=== PATIENT | female | born 1945 | race Caucasian/White ===

== ENCOUNTER 2018-05-16 20:11 | Inpatient (IN) | payer BC, MEDICARE ==
[2018-05-16] MEDS ORDERED: ONDANSETRON HCL/PF 2 MG/ML VIAL IV ONE ×2 (21:20→22:59)
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
[2018-05-16 21:31] LABS: Hemoglobin 12.5 gm/dL (12.5-16.0); Mean Cell Volume 99.7 fl (78-100); Mean Corpuscular Hemoglobin 33.7 pg (27-31); Mean Corpuscular Hgb Conc 33.8 g/dl (32-36); Mean Platelet Volume 9.7 fl (8-12.5); Platelet Count 292 K/mm3 (150-450); Red Blood Count 3.71 M/mm3 (4.2-5.4); Red Cell Distribution Width 13.9 % (11.5-14.0); White Blood Count 39.9 K/mm3 (4.0-10.5)
[2018-05-16 21:36] LABS: Total Cells Counted 100
[2018-05-16 21:50] LABS: Albumin * 3.4 gm/dl (3.4-5.0); Anion Gap 14.6 mmol/L (6.8-13.8); Bilirubin, Total 0.6 mg/dL (0.0-1.1); Ca. Corrected For Albumin 9.3 mg/dL (8.4-10.2); Calcium * 9.1 mg/dL (7.9-10.9); Carbon Dioxide 25.1 mmol/L (24-32.6); Potassium 3.7 mmol/L (3.4-4.6); Total Protein 7.6 gm/dL (6.2-8.2)
[2018-05-16 21:52] LABS: Band 2 % (0-2.0); Lymphocyte 7 % (20-51); Monocyte 9 % (0-9); Neutrophil 82 % (42-75); Neutrophil # 32.7 K/mm3 (1.3-6.0)
[2018-05-16 21:53] LABS: Dohle Bodies 2+; Platelet Estimate Normal (NORMAL); Poikilocytosis Trace; Toxic Granulation Trace
[2018-05-16] MEDS ORDERED: DIATRIZOATE MEGLUMINE, SODIUM 30 ML BTL PO ONE (22:48)
[2018-05-17] MEDS ORDERED: AZITHROMYCIN 250 MG TABLET PO ONE (01:45)
[2018-05-17] MEDS: ACETAMINOPHEN 500 MG TABLET PO PRN ×2 (07:13→15:53)
[2018-05-17] MEDS ORDERED: ACETAMINOPHEN 500 MG TABLET PO PRN (13:37)
[2018-05-17] MEDS ORDERED: ONDANSETRON HCL 4 MG TABLET PO PRN (13:41)
[2018-05-17] MEDS ORDERED: ENOXAPARIN SODIUM 40 MG/0.4 ML SYRG SC SCH (13:45)
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
[2018-05-17] MEDS: GABAPENTIN 600 MG TABLET PO SCH ×2 (14:48→20:47)
[2018-05-17] MEDS: CYCLOBENZAPRINE HCL 10 MG TABLET PO SCH ×2 (14:49→20:02)
[2018-05-17] MEDS ORDERED: SODIUM CHLORIDE 500 DROP BTL NS PRN (15:12)
[2018-05-17] MEDS ORDERED: GABAPENTIN 600 MG TABLET PO SCH (17:00)
[2018-05-17] MEDS: ROSUVASTATIN CALCIUM 20 MG TABLET PO SCH (20:02)
[2018-05-17] MEDS: ALPRAZolam 0.5 MG TABLET PO SCH (20:02)
[2018-05-18] MEDS: CYCLOBENZAPRINE HCL 10 MG TABLET PO SCH ×4 (01:18→20:00)
[2018-05-18] MEDS: GABAPENTIN 600 MG TABLET PO SCH ×3 (05:13→21:09)
[2018-05-18] MEDS: ACETAMINOPHEN 500 MG TABLET PO PRN ×2 (06:52→19:12)
[2018-05-18] MEDS: LEVOTHYROXINE SODIUM 50 MCG TABLET PO SCH (06:54)
[2018-05-18] MEDS: NORMAL SALINE 1,000 ML IV ONE ×2 (07:40→15:15)
[2018-05-18] MEDS: AZITHROMYCIN 500 MG in DEXTROSE 5 % IN WATER 250 ML IV SCH ×2 (07:45)
[2018-05-18] MEDS: CHOLECALCIFEROL 1,000 UNIT CAPSULE PO SCH (08:07)
[2018-05-18] MEDS: CYANOCOBALAMIN 1,000 MCG TABLET PO SCH (08:07)
[2018-05-18] MEDS: CLOPIDOGREL BISULFATE 75 MG TABLET PO SCH (08:07)
[2018-05-18] MEDS: HYDROCHLOROTHIAZIDE 12.5 MG CAPSULE PO SCH (08:07)
[2018-05-18] MEDS: LISINOPRIL 20 MG TABLET PO SCH (08:08)
[2018-05-18] MEDS: ALLOPURINOL 100 MG TABLET PO SCH (08:08)
[2018-05-18] MEDS ORDERED: NON-FORMULARY 1 DOSE DOSE (Lisinopril/Hydrochlorothiazide [Lisinopril-Hctz 20-12.5 Mg Tab] PO SCH (09:00)
[2018-05-18 11:04] LABS: Hematocrit 35.7 % (37.0-47.0); Hemoglobin 11.8 gm/dL (12.5-16.0); Mean Cell Volume 102.6 fl (78-100); Mean Corpuscular Hemoglobin 33.9 pg (27-31); Mean Corpuscular Hgb Conc 33.1 g/dl (32-36); Mean Platelet Volume 10.1 fl (8-12.5); Platelet Count 283 K/mm3 (150-450); Red Blood Count 3.48 M/mm3 (4.2-5.4); Red Cell Distribution Width 13.9 % (11.5-14.0); White Blood Count 23.9 K/mm3 (4.0-10.5)
[2018-05-18 11:14] LABS: Total Cells Counted 100
[2018-05-18 11:21] LABS: Albumin * 2.7 gm/dl (3.4-5.0); BUN/Creatinine Ratio 24.2 (9.0-21.6); Bilirubin, Total 0.6 mg/dL (0.0-1.1); Ca. Corrected For Albumin 9.5 mg/dL (8.4-10.2); Calcium * 8.8 mg/dL (7.9-10.9); Carbon Dioxide 30.7 mmol/L (24-32.6); Potassium 3.7 mmol/L (3.4-4.6); Total Protein 6.9 gm/dL (6.2-8.2)
[2018-05-18 11:31] LABS: Atypical (Reactive) Lymph 3 % (0-2); Band 2 % (0-2.0); Lymphocyte 2 % (20-51); Monocyte 3 % (0-9); Neutrophil 90 % (42-75); Neutrophil # 21.5 K/mm3 (1.3-6.0)
[2018-05-18 11:33] LABS: Platelet Estimate Normal (NORMAL); RBC Morphology Normal (NORMAL); Toxic Granulation 1+
[2018-05-18] MEDS ORDERED: LIDOCAINE HCL 50 ML VIAL IM ONE (11:40)
[2018-05-18] MEDS ORDERED: NORMAL SALINE 1,000 ML IV ONE ×2 (11:42→16:02)
--- NOTE | 2018-05-18 12:15 | PN ---
Subjective - Date and Time Seen Date: 05/18/18 Time: 11:58 Subjective Narrative: 72-year-old female admitted for bilateral bronchopneumonia was evaluated at bedside and was found to be afebrile and in no acute distress. Patient shows clinical improvement however today's labs demonstrate worsening renal function and moderate hypo-natremia, therefore high IV hydration was ordered and repeat labs was were ordered for tomorrow morning. Patient was also found to have moderate hyponatremia therefore nutrition consult was requested. Sputum culture shows growth of a gram-positive organism so we will continue IV antibiotics. We will reevaluate her throughout the day. Objective - Review of Systems Generalized/Overall Review: Reports: Weakness EENTM: Reports: No Symptoms Reported Respiratory: Reports: Cough Cardiac: Reports: No Symptoms Reported Abdominal: Reports: Nausea Genitourinary Symptoms: Reports: No Symptoms Reported Musculoskeletal Complaints: Reports: No Symptoms Reported Neurological: Reports: No Symptoms Reported Skin: Reports: No Symptoms Reported Endocrine: Reports: No Symptoms Reported - Vitals Vitals: Last Vital Signs Temp 36.4 C 05/18/18 10:19 Pulse 85 05/18/18 10:19 Resp 16 05/18/18 10:19 BP 114/53 05/18/18 10:19 Pulse Ox 92 L 05/18/18 10:19 - Abnormal Lab Findings Abnormal Lab Findings: Abnormal Lab Results 05/18/18 05/18/18 Range/Units 10:55 10:55 WBC 23.9 H D (4.0-10.5) K/mm3 RBC 3.48 L (4.2-5.4) M/mm3 Hgb 11.8 L (12.5-16.0) gm/dL Hct 35.7 L (37.0-47.0) % MCV 102.6 H (78-100) fl MCH 33.9 H (27-31) pg Neutrophils % (Manual) 90 H (42-75) % Lymphocytes % (Manual) 2 L (20-51) % Neutrophils # (Manual) 21.5 H (1.3-6.0) K/mm3 Lymphocytes # (Manual) 0.5 L (1.5-3.5) k/mm3 Atypic/Reactive Lymphs 3 H (0-2) % Sodium 128 L (132-142) mmol/L Chloride 96 L (97-106) mmol/L Anion Gap 5.0 L (6.8-13.8) mmol/L BUN 55 H D (3-23) mg/dL Creatinine 2.27 H D (0.4-1.4) mg/dL Est GFR (Non-Af Amer) 22 L D (60-130) mL/min BUN/Creatinine Ratio 24.2 H (9.0-21.6) Random Glucose 370 H D (70-110) mg/dL ALT 16 L (19-67) U/L Albumin 2.7 L (3.4-5.0) gm/dl - Exam Constitutional: Present: Alert, Oriented x3, Cooperative, No distress, Elderly ENT Exam: Present: normal ENT inspection, hearing grossly normal, pharynx normal, TMs normal Neck: Present: non-tender Breasts: Present: Exam deferred Respiratory: Present: crackles - Bibasilar Cardiovascular/Chest: Present: normal peripheral pulses, regular rate, rhythm, no chest tenderness, no edema, no gallop, no JVD, no murmur Abdomen: Present: Normal bowel sounds, soft, nontender, nondistended, no rebound tenderness, no hepatospenomegaly, no masses, obese /Rectal: Present: Exam deferred Extremity: Present: normal range of motion, non-tender, normal inspection, no pedal edema, no calf tenderness Skin Exam: Present: warm/dry, no cyanosis, pallor Lymphatic: Present: no adenopathy Neurologic: 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 She is mildly hypotensive and this morning's labs demonstrate AK I with elevated BUN and creatinine, therefore patient will be admitted to the inpatient [facility] where she will be treated with continued IV antibiotics for her pneumonia and aggressive IV hydration. IV bolus of normal saline has been ordered to address her acute kidney injury and moderate dehydration. Morning labs have been ordered to reevaluate electrolytes and kidney function. - Problems/Diagnosis (1) Pneumonia Problem: Acute Qualifiers: Pneumonia type: due to unspecified organism Laterality: bilateral Lung location: lower lobe of lung Qualified Code(s): J18.1 - Lobar pneumonia, unspecified organism (2) Dehydration, moderate Problem: Acute (3) Gastroenteritis Problem: Acute (4) Generalized weakness Problem: Acute
[2018-05-18] MEDS ORDERED: INSULIN REGULAR, HUMAN 100 UNITS/ML VIAL SC ONE (17:14)
[2018-05-18] MEDS: INSULIN LISPRO 100 UNITS/ML VIAL SC SCH ×2 (17:25→21:47)
[2018-05-18] MEDS ORDERED: ACETAMINOPHEN 325 MG TABLET ONE (19:03)
[2018-05-18] MEDS ORDERED: INSULIN REGULAR, HUMAN 100 UNITS/ML VIAL SC SCH (19:15)
[2018-05-18] MEDS ORDERED: NORMAL SALINE 500 ML IV ONE ×2 (19:17→21:04)
[2018-05-18] MEDS: ROSUVASTATIN CALCIUM 20 MG TABLET PO SCH (20:00)
[2018-05-18] MEDS: ALPRAZolam 0.5 MG TABLET PO SCH (20:05)
[2018-05-19] MEDS: CYCLOBENZAPRINE HCL 10 MG TABLET PO SCH ×2 (02:34→08:21)
[2018-05-19] MEDS: GABAPENTIN 600 MG TABLET PO SCH (05:18)
[2018-05-19 05:35] LABS: Hemoglobin 11.1 gm/dL (12.5-16.0); Mean Cell Volume 101.8 fl (78-100); Mean Corpuscular Hemoglobin 33.2 pg (27-31); Mean Corpuscular Hgb Conc 32.6 g/dl (32-36); Mean Platelet Volume 10.4 fl (8-12.5); Platelet Count 280 K/mm3 (150-450); Red Blood Count 3.34 M/mm3 (4.2-5.4); Red Cell Distribution Width 13.5 % (11.5-14.0); White Blood Count 18.8 K/mm3 (4.0-10.5)
[2018-05-19 05:39] LABS: Total Cells Counted 100
[2018-05-19 06:01] LABS: Albumin * 2.7 gm/dl (3.4-5.0); Anion Gap 11.6 mmol/L (6.8-13.8); BUN/Creatinine Ratio 25.1 (9.0-21.6); Bilirubin, Total 0.6 mg/dL (0.0-1.1); Ca. Corrected For Albumin 9.2 mg/dL (8.4-10.2); Calcium * 8.5 mg/dL (7.9-10.9); Carbon Dioxide 27.4 mmol/L (24-32.6); Total Protein 6.6 gm/dL (6.2-8.2)
[2018-05-19 06:13] LABS: Atypical (Reactive) Lymph 4 % (0-2); Eosinophil 1 % (0-3); Lymphocyte 5 % (20-51); Monocyte 7 % (0-9); Neutrophil 83 % (42-75); Neutrophil # 15.6 K/mm3 (1.3-6.0)
[2018-05-19 06:19] LABS: Platelet Estimate Normal (NORMAL)
[2018-05-19 06:20] LABS: Macrocytosis 1+; Schistocytes 1+; Target Cells 1+
[2018-05-19] MEDS: AZITHROMYCIN 500 MG in DEXTROSE 5 % IN WATER 250 ML IV SCH ×2 (06:30)
[2018-05-19] MEDS: LEVOTHYROXINE SODIUM 50 MCG TABLET PO SCH (06:30)
[2018-05-19] MEDS: INSULIN LISPRO 100 UNITS/ML VIAL SC SCH ×2 (07:46→11:45)
[2018-05-19] MEDS: HYDROCHLOROTHIAZIDE 12.5 MG CAPSULE PO SCH (08:32)
[2018-05-19] MEDS: LISINOPRIL 20 MG TABLET PO SCH (08:33)
[2018-05-19] MEDS: CHOLECALCIFEROL 1,000 UNIT CAPSULE PO SCH (08:37)
[2018-05-19] MEDS: CYANOCOBALAMIN 1,000 MCG TABLET PO SCH (08:37)
[2018-05-19] MEDS: ALLOPURINOL 100 MG TABLET PO SCH (08:38)
[2018-05-19] MEDS: CLOPIDOGREL BISULFATE 75 MG TABLET PO SCH (08:38)
[2018-05-19] MEDS ORDERED: INSULIN GLARGINE,HUM.REC.ANLOG 100 UNITS/ML VIAL SC SCH (09:00)
[2018-05-19] MEDS ORDERED: NORMAL SALINE 1,000 ML IV ONE (10:24)
--- NOTE | 2018-05-19 10:24 | PN ---
Subjective - Date and Time Seen Date: 05/19/18 Time: 10:14 Subjective Narrative: I feel so much better. Objective Objective Narrative: 72-year-old female admitted for bilateral bronchopneumonia was evaluated at bedside and was found to be afebrile and in no acute distress. Patient patient shows marked improvement, she is maintaining stable vitals her cough has resolved and there has been no recurrence of fever. This morning labs demonstrate a decline in WBCs and an improvement in GFR after aggressive hydration. Patient had to be treated with multiple doses of IV insulin due to uncontrolled hyperglycemia, aggressive action had to be taken for optimal glucose control to favor resolution of bacterial infection. patient appears to have more color and strength and she verbalizes that she feels better than when she came. She wanted to know when we should be discharged from the hospital. We will give her 1 more bolus of IV fluid and reevaluate for possible discharge throughout the day. - Review of Systems Generalized/Overall Review: Reports: Weakness EENTM: Reports: No Symptoms Reported Respiratory: Reports: No Symptoms Reported Cardiac: Reports: No Symptoms Reported Abdominal: Reports: No Symptoms Reported Genitourinary Symptoms: Reports: No Symptoms Reported Musculoskeletal Complaints: Reports: No Symptoms Reported Neurological: Reports: No Symptoms Reported Skin: Reports: No Symptoms Reported Endocrine: Reports: No Symptoms Reported - Vitals Vitals: Last Vital Signs Temp 37.2 C 05/19/18 05:00 Pulse 92 05/19/18 08:33 Resp 20 05/19/18 05:00 BP 141/60 05/19/18 08:33 Pulse Ox 95 05/19/18 05:00 - Abnormal Lab Findings Abnormal Lab Findings: Abnormal Lab Results 05/18/18 05/18/18 05/19/18 Range/Units 10:55 10:55 05:31 WBC 23.9 H D 18.8 H D (4.0-10.5) K/mm3 RBC 3.48 L 3.34 L (4.2-5.4) M/mm3 Hgb 11.8 L 11.1 L (12.5-16.0) gm/dL Hct 35.7 L 34.0 L (37.0-47.0) % MCV 102.6 H 101.8 H (78-100) fl MCH 33.9 H 33.2 H (27-31) pg Neutrophils % (Manual) 90 H 83 H (42-75) % Lymphocytes % (Manual) 2 L 5 L (20-51) % Neutrophils # (Manual) 21.5 H 15.6 H (1.3-6.0) K/mm3 Lymphocytes # (Manual) 0.5 L 0.9 L (1.5-3.5) k/mm3 Monocytes # (Manual) 1.3 H (0.0-1.0) k/mm3 Atypic/Reactive Lymphs 3 H 4 H (0-2) % Sodium 128 L (132-142) mmol/L Chloride 96 L (97-106) mmol/L Anion Gap 5.0 L (6.8-13.8) mmol/L BUN 55 H D (3-23) mg/dL Creatinine 2.27 H D (0.4-1.4) mg/dL Est GFR (Non-Af Amer) 22 L D (60-130) mL/min BUN/Creatinine Ratio 24.2 H (9.0-21.6) Random Glucose 370 H D (70-110) mg/dL ALT 16 L (19-67) U/L Albumin 2.7 L (3.4-5.0) gm/dl 05/19/18 Range/Units 05:31 WBC (4.0-10.5) K/mm3 RBC (4.2-5.4) M/mm3 Hgb (12.5-16.0) gm/dL Hct (37.0-47.0) % MCV (78-100) fl MCH (27-31) pg Neutrophils % (Manual) (42-75) % Lymphocytes % (Manual) (20-51) % Neutrophils # (Manual) (1.3-6.0) K/mm3 Lymphocytes # (Manual) (1.5-3.5) k/mm3 Monocytes # (Manual) (0.0-1.0) k/mm3 Atypic/Reactive Lymphs (0-2) % Sodium (132-142) mmol/L Chloride (97-106) mmol/L Anion Gap (6.8-13.8) mmol/L BUN 50 H (3-23) mg/dL Creatinine 1.99 H (0.4-1.4) mg/dL Est GFR (Non-Af Amer) 26 L (60-130) mL/min BUN/Creatinine Ratio 25.1 H (9.0-21.6) Random Glucose 293 H (70-110) mg/dL ALT (19-67) U/L Albumin 2.7 L (3.4-5.0) gm/dl - Exam Constitutional: Present: Alert, Oriented x3, Cooperative, Well developed, Well nourished, No distress, Elderly ENT Exam: Present: normal ENT inspection, hearing grossly normal, pharynx normal, TMs normal Neck: Present: non-tender, full range of motion, supple, normal inspection, trachea midline, limited range of motion Breasts: Present: Exam deferred Respiratory: Present: chest non-tender, lungs clear, normal breath sounds, no respiratory distress Cardiovascular/Chest: Present: normal peripheral pulses, regular rate, rhythm, no chest tenderness, no edema, no gallop, no JVD, no murmur Abdomen: Present: Normal bowel sounds, soft, nontender, no hepatospenomegaly, no masses, obese /Rectal: Present: Exam deferred Extremity: Present: normal range of motion, non-tender, normal inspection, no pedal edema, no calf tenderness Skin Exam: Present: normal color, warm/dry, no cyanosis Lymphatic: Present: no adenopathy Neurologic: Present: colorectal surgeon II-XII nml as tested, normal cerebellar test, no motor/sensory deficits, alert, normal mood/affect, oriented x 3 Appearance: Present: appropriate appearance, appropriate insight, neat, no memory impairment Eye contact: Present: cooperative, good eye contact, normal speech Thoughts: Present: normal thought pattern, no apparent hallucination, auditory hallucinations Assessment/Plan Plan Narrative: We will give patient 1 more bolus of fluid, and continue IV antibiotic and reevaluate for possible discharge later on today. - Problems/Diagnosis (1) Pneumonia Problem: Acute Qualifiers: Pneumonia type: due to unspecified organism Laterality: bilateral Lung location: lower lobe of lung Qualified Code(s): J18.1 - Lobar pneumonia, unspecified organism (2) Dehydration, moderate Problem: Acute (3) Gastroenteritis Problem: Acute (4) Generalized weakness Problem: Acute (5) Uncontrolled diabetes mellitus Problem: Acute (6) Acute kidney injury superimposed on CKD Problem: Acute
--- NOTE | 2018-05-19 12:08 | DS ---
(1) Pneumonia Problem: Acute Qualifiers: Pneumonia type: due to unspecified organism Laterality: bilateral Lung location: lower lobe of lung Qualified Code(s): J18.1 - Lobar pneumonia, unspecified organism (2) Dehydration, moderate Problem: Resolved (3) Gastroenteritis Problem: Resolved (4) Generalized weakness Problem: Resolved (5) Uncontrolled diabetes mellitus Problem: Chronic (6) Acute kidney injury superimposed on CKD Problem: Acute Description of Stay: 72-year-old female admitted for bilateral bronchopneumonia was evaluated at bedside and was found to be afebrile and in no acute distress. Patient was treated with IV antibiotics, aggressive IV hydration, insulin therapy, and responded favorably to the management. She has regained strength, her nausea and vomiting has resolved, her cough has resolved, and patient reports feeling stronger and better. Decision to discharge home with additional days of oral antibiotics and a CMP to reevaluate for kidney function was taken. Patient was instructed to follow-up with her PCP and 3-5 days. Procedures Performed: none Results and Findings: Pending Mircobiology Results 05/17/18 17:30 Expectorate Sputum Sputum Culture - Preliminary No Pathogens Isolated 05/16/18 22:10 Blood Blood Culture - Preliminary NO GROWTH AFTER 48 HOURS 05/17/18 01:40 Blood Blood Culture - Preliminary NO GROWTH AFTER 48 HOURS Lab Pending Results 05/16/18 21:25: WBC 39.9 H, RBC 3.71 L, Hgb 12.5, Hct 37.0, MCV 99.7, MCH 33.7 H, MCHC 33.8, RDW 13.9, Plt Count 292, MPV 9.7, Neutrophils % (Manual) 82 H, Band Neuts % (Manual) 2, Lymphocytes % (Manual) 7 L, Monocytes % (Manual) 9, Neutrophils # (Manual) 32.7 H, Lymphocytes # (Manual) 2.8, Monocytes # (Manual) 3.6 H, Toxic Granulation Trace, Toxic Vacuolation 1+, Dohle Bodies 2+, Platelet Estimate Normal, Poikilocytosis Trace 05/16/18 21:25: Sodium 137, Plasma Sodium 137, Potassium 3.7, Chloride 101, Carbon Dioxide 25.1, Anion Gap 14.6 H, BUN 36 H, Creatinine 1.64 H, Est GFR (Non-Af Amer) 33 L, BUN/Creatinine Ratio 22.0 H, Random Glucose 113 H, Calcium 9.1, Calcium Adj for Albumin 9.3, Total Bilirubin 0.6, AST 26, ALT 16 L, Alkaline Phosphatase 113, Total Protein 7.6, Albumin 3.4 05/16/18 21:25: Lactic Acid, Venous 1.1 05/16/18 21:25: ESR 63 H 05/16/18 21:25: C-Reactive Prot, Quant 17.4 H 05/18/18 10:55: WBC 23.9 H D, RBC 3.48 L, Hgb 11.8 L, Hct 35.7 L, MCV 102.6 H, MCH 33.9 H, MCHC 33.1, RDW 13.9, Plt Count 283, MPV 10.1, Neutrophils % (Manual) 90 H, Band Neuts % (Manual) 2, Lymphocytes % (Manual) 2 L, Monocytes % (Manual) 3, Neutrophils # (Manual) 21.5 H, Lymphocytes # (Manual) 0.5 L, Monocytes # (Manual) 0.7, Atypic/Reactive Lymphs 3 H, Toxic Granulation 1+, Platelet Estimate Normal, RBC Morphology Normal 05/18/18 10:55: Sodium 128 L, Plasma Sodium 132, Potassium 3.7, Chloride 96 L, Carbon Dioxide 30.7, Anion Gap 5.0 L, BUN 55 H D, Creatinine 2.27 H D, Est GFR (Non-Af Amer) 22 L D, BUN/Creatinine Ratio 24.2 H, Random Glucose 370 H D, Calcium 8.8, Calcium Adj for Albumin 9.5, Total Bilirubin 0.6, AST 33, ALT 16 L, Alkaline Phosphatase 97, Total Protein 6.9, Albumin 2.7 L 05/19/18 05:31: WBC 18.8 H D, RBC 3.34 L, Hgb 11.1 L, Hct 34.0 L, MCV 101.8 H, MCH 33.2 H, MCHC 32.6, RDW 13.5, Plt Count 280, MPV 10.4, Neutrophils % (Manual) 83 H, Lymphocytes % (Manual) 5 L, Monocytes % (Manual) 7, Eosinophils % (Manual) 1, Neutrophils # (Manual) 15.6 H, Lymphocytes # (Manual) 0.9 L, Monocytes # ( Manual) 1.3 H, Eosinophils # (Manual) 0.2, Atypic/Reactive Lymphs 4 H, Platelet Estimate Normal, Macrocytosis 1+, Target Cells 1+, Gorin Cells 1+, Schistocytes 1+ 05/19/18 05:31: Sodium 135, Plasma Sodium 138, Potassium 4.0, Chloride 100, Carbon Dioxide 27.4, Anion Gap 11.6, BUN 50 H, Creatinine 1.99 H, Est GFR (Non- Af Amer) 26 L, BUN/Creatinine Ratio 25.1 H, Random Glucose 293 H, Calcium 8.5, Calcium Adj for Albumin 9.2, Total Bilirubin 0.6, AST 31, ALT 21, Alkaline Phosphatase 98, Total Protein 6.6, Albumin 2.7 L Discharge Location: Home Disposition: Home self-care Condition: Good Face to Face Encounter completed per [facility] Guidelines: No Discharge Activity: Activity as tolerated Discharge Diet: Consistent carbs Referrals: Zahra Smyth ARNP [Primary Care Provider] - Additional Patient Instructions (free text): -Please make TCM appointment unless long term discharge. Thank you! Galina @ [phone]. Prescriptions (Any new or edited meds): Azithromycin 250 mg PO 5XD 5 Days #5 tablet Complete Home Medications List: Complete Home Medication List: ALPRAZolam [Xanax] 0.5 mg PO HS 05/17/18 Allopurinol [Zyloprim] 100 mg PO QAM 05/17/18 Atorvastatin Calcium 80 mg PO QPM 05/17/18 Cholecalciferol (Vitamin D3) [Vitamin D3] 2,000 unit PO QAM 05/17/18 Clopidogrel Bisulfate [Plavix] 75 mg PO QAM 05/17/18 Cyanocobalamin (Vitamin B-12) [B-12] 1,000 mcg PO QAM 05/17/18 Cyclobenzaprine HCl 10 mg PO Q6H 05/17/18 Gabapentin [Neurontin] 1,200 mg PO TID 05/17/18 Ketorolac Tromethamine 1 drop OP BID 05/17/18 Levothyroxine Sodium [Synthroid] 50 mcg PO QAM 05/17/18 Lisinopril/Hydrochlorothiazide [Lisinopril-Hctz 20-12.5 mg Tab] 1 each PO QAM 05/17/18 Prednisolone Acetate/Pf [Prednisolone Acet 1% Eye Drop] 1 drop OP BID 05/17/18 Insulin Glargine,Hum.rec.anlog [Lantus Solostar] 60 unit SQ QAM 05/18/18 Insulin Lispro [Humalog Kwikpen U-100] 10 unit SQ AC 05/18/18 Azithromycin 250 mg PO 5XD 5 Days #5 tablet 05/19/18
[2018-05-19 13:31] VITALS: BP 130/76
== END 2018-05-19 14:00 | disposition home or self-care (01) | DRG 194 ==
LOC: MS 20:11 → ER 20:11 → MS 05-17 02:10
PROVIDERS: ADMIT Family Medicine; ATTEND Family Medicine
DX: E03.9 Hypothyroidism, unspecified; M19.90 Unspecified osteoarthritis, unspecified site; E87.1 Hypo-osmolality and hyponatremia; E11.42 Type 2 diabetes mellitus with diabetic polyneuropathy; J18.1 Lobar pneumonia, unspecified organism; E66.01 Morbid (severe) obesity due to excess calories; I25.10 Atherosclerotic heart disease of native coronary artery without angina pectoris; E78.5 Hyperlipidemia, unspecified; R53.1 Weakness; F41.9 Anxiety disorder, unspecified; F32.9 Major depressive disorder, single episode, unspecified; Z79.4 Long term (current) use of insulin; Z68.41 Body mass index [BMI] 40.0-44.9, adult; E11.22 Type 2 diabetes mellitus with diabetic chronic kidney disease; Z79.02 Long term (current) use of antithrombotics/antiplatelets; N17.9 Acute kidney failure, unspecified; E55.9 Vitamin D deficiency, unspecified; G47.30 Sleep apnea, unspecified; N18.3 Chronic kidney disease, stage 3 (moderate); E11.65 Type 2 diabetes mellitus with hyperglycemia; K52.9 Noninfective gastroenteritis and colitis, unspecified; I12.9 Hypertensive chronic kidney disease with stage 1 through stage 4 chronic kidney disease, or unspecified chronic kidney disease; E86.0 Dehydration
CPT/HCPCS: 36415; 71020; 71046; 74019; 74020; 74177; 80053; 83605; 85007; 85025; 85652; 86140; 87040; 87070; 93005; 94760; 96365; 96366; 96375; 96376; 99285; J2405